=== PATIENT | male | born 1965 | race American Indian/Alaskan Native ===

== ENCOUNTER 2019-08-28 07:54 | Emergency (ER) | payer OTHER ==
[2019-08-28] MEDS ORDERED: Diltiazem 25 MG/5 ML SDV IVPUSH ONE (08:21)
--- NOTE | 2019-08-28 08:31 | EDM.PDOC ---
ED HPI GENERAL MEDICAL PROBLEM - General Chief Complaint: Chest Pain Stated Complaint: PAIN IN CHEST AND STOMACH Time Seen by Provider: 08/28/19 08:29 Source of Information: Reports: Patient History Limitations: Reports: No Limitations - History of Present Illness INITIAL COMMENTS - FREE TEXT/NARRATIVE: 3 days h/o abd bloating and rapid heart. worse this am. seen [facility] and scheduled for holter monitor this am but felt too uncomfortable so came here. 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 chest/abdomen Pain Score (Numeric/FACES): 7 - Related Data Allergies Allergy/AdvReac Type Severity Reaction Status Date / Time No Known Allergies Allergy Verified 08/28/19 08:12 Home Meds: Home Meds Losartan Potassium [Cozaar] 100 mg PO DAILY 03/05/15 [History] Potassium Chloride 20 meq PO TID 03/05/15 [History] Levothyroxine 37.5 mcg PO ACBREAKFAST 02/16/17 [History] Simvastatin [Zocor] 10 mg PO BEDTIME 02/16/17 [History] metFORMIN [Glucophage] 1,000 mg PO BIDMEALS 02/16/17 [History] Apixaban [Eliquis] 5 mg PO BID 07/07/19 [History] Cholecalciferol (Vitamin D3) [Vitamin D3] 1,000 unit PO DAILY 07/07/19 [History] Metoprolol Tartrate [Lopressor] 150 mg PO BID 30 Days #90 tablet 07/13/19 [Rx] Furosemide [Lasix] 40 mg PO BID 08/28/19 [History] Past Medical History HEENT History: Reports: None Cardiovascular History: Reports: Afib, High Cholesterol, Hypertension Respiratory History: Reports: Sleep Apnea Gastrointestinal History: Reports: None Genitourinary History: Reports: None Musculoskeletal History: Reports: Arthritis, Osteoarthritis Neurological History: Reports: None Psychiatric History: Reports: None Endocrine/Metabolic History: Reports: Diabetes, Type II, Hypothyroidism Hematologic History: Reports: None Immunologic History: Reports: None Oncologic (Cancer) History: Reports: None Dermatologic History: Reports: None - Infectious Disease History Infectious Disease History: Reports: Chicken Pox, Measles, Mumps - Past Surgical History Cardiovascular Surgical History: Reports: None Respiratory Surgical History: Reports: None GI Surgical History: Reports: Appendectomy, Colonoscopy Endocrine Surgical History: Reports: None Neurological Surgical History: Reports: None Social & Family History - Family History Family Medical History: Noncontributory - Tobacco Use Smoking Status *Q: Never Smoker Second Hand Smoke Exposure: No - Caffeine Use Caffeine Use: Reports: None - Recreational Drug Use Recreational Drug Use: No ED ROS GENERAL - Review of Systems Review Of Systems: Comprehensive ROS is negative, except as noted in HPI. ED EXAM, GENERAL - Physical Exam Exam: See Below Exam Limited By: No Limitations General Appearance: Alert, WD/WN, Mild Distress, Other (discomfort) Ears: Hearing Grossly Normal Throat/Mouth: Normal Voice, No Airway Compromise Head: Atraumatic Neck: Non-Tender, Full Range of Motion Respiratory/Chest: No Respiratory Distress Cardiovascular: Irregularly Irregular GI/Abdominal: Soft, Non-Tender Neurological: Alert, Oriented, Normal Cognition, Normal Gait, No Motor/Sensory Deficits Psychiatric: Anxious Skin Exam: Warm, Dry, Normal Color Lymphatic: No Adenopathy Course - Vital Signs Last Recorded V/S: Last Vital Signs Temp 35.8 C 08/28/19 08:05 Pulse 48 L 08/28/19 09:14 Resp 23 H 08/28/19 09:14 BP 95/59 L 08/28/19 09:14 Pulse Ox 97 08/28/19 09:14 - Orders/Labs/Meds Orders: Active Orders 24 hr Category Date Time Status EKG 12 Lead [EKG Documentation Completion] [RC] STAT Care 08/28/19 08:39 Active EKG Documentation Completion [RC] STAT Care 08/28/19 08:18 Active Chest 1V Frontal [CR] Urgent Exams 08/28/19 09:06 Taken Labs: Laboratory Tests 08/28/19 08/28/19 Range/Units 08:23 08:23 WBC 9.3 (5.0-10.0) 10^3/uL RBC 6.16 (4.6-6.2) 10^6/uL Hgb 16.1 D (14.0-18.0) g/dL Hct 49.2 (40.0-54.0) % MCV 79.9 L D (80-100) fL MCH 26.1 L (27.0-34.0) pg MCHC 32.7 L (33.0-35.0) g/dL Plt Count 238 (150-450) 10^3/uL Neut % (Auto) 57.0 (42.2-75.2) % Lymph % (Auto) 31.6 (20.5-50.1) % [place] % (Auto) 9.1 H (2-8) % Eos % (Auto) 1.9 (1.0-3.0) % Baso % (Auto) 0.4 (0.0-1.0) % Sodium 136 (135-145) mmol/L Potassium 5.5 H D (3.6-5.0) mmol/L Chloride 104 (101-111) mmol/L Carbon Dioxide 23.0 (21.0-31.0) mmol/L Anion Gap 14.5 BUN 21 H (7-18) mg/dL Creatinine 1.2 (0.6-1.3) mg/dL Est Cr Clr Drug Dosing 79.92 mL/min Estimated GFR (MDRD) > 60 BUN/Creatinine Ratio 17.50 Glucose 142 H (74-105) mg/dL Calcium 8.8 (8.4-10.2) mg/dl Magnesium 2.0 (1.8-2.5) mg/dL Total Bilirubin 1.5 H (0.2-1.0) mg/dL AST 27 (10-42) IU/L ALT 25 (10-60) IU/L Alkaline Phosphatase 56 (42-121) IU/L Troponin I < 0.02 (0.00-0.02) ng/ml B-Natriuretic Peptide 1110 H (0-100) pg/ml Total Protein 6.8 (6.7-8.2) g/dl Albumin 3.4 (3.2-5.5) g/dl Globulin 3.4 Albumin/Globulin Ratio 1.00 Meds: Medications Discontinued Medications Generic Name Dose Route Start Last Admin Trade Name Freq PRN Reason Stop Dose Admin Diltiazem HCl 25 mg 08/28/19 08:21 08/28/19 08:28 Diltiazem IVPUSH 08/28/19 08:22 25 mg ONETIME ONE Administration Sodium Chloride 1,000 mls @ 999 mls/hr 08/28/19 08:43 08/28/19 09:49 Normal Saline IV 08/28/19 09:43 Infused .BOLUS ONE Infusion - Re-Assessments/Exams Free Text/Narrative Re-Assessment/Exam: 08/28/19 08:42 s/p caridzem=much better chest pain and abd bloating all gone. HR 40-50s. denies CP/SOB dizziness 08/28/19 09:[address] Wallace @ [facility] who kindly accepted tp. pt remains asymptomatic. Departure - Departure Time of Disposition: 09:57 Disposition: DC/Tfer to [facility] 02 Reason for Transfer *Q: Other Condition: Good Clinical Impression: Atrial fibrillation with rapid ventricular response, Bradyarrhythmia Hypotension Qualifiers: Hypotension type: other hypotension type Qualified Code(s): I95.89 - Other hypotension Forms: Interfacility Transfer [facility] Sepsis Event Note - Evaluation Sepsis Screening Result: No Definite Risk - Focused Exam Vital Signs: Vital Signs Temp Pulse Resp BP Pulse Ox 08/28/19 09:14 48 L 23 H 95/59 L 97 08/28/19 08:05 35.8 C 127 H 24 H 129/112 H 98 Date Exam was Performed: 08/28/19 Time Exam was Performed: 09:51 - My Orders Last 24 Hours: My Active Orders 08/28/19 08:18 EKG Documentation Completion [RC] STAT 08/28/19 08:39 EKG 12 Lead [EKG Documentation Completion] [RC] STAT 08/28/19 09:06 Chest 1V Frontal [CR] Urgent - Assessment/Plan Last 24 Hours: My Active Orders 08/28/19 08:18 EKG Documentation Completion [RC] STAT 08/28/19 08:39 EKG 12 Lead [EKG Documentation Completion] [RC] STAT 08/28/19 09:06 Chest 1V Frontal [CR] Urgent
[2019-08-28] MEDS ORDERED: Sodium Chloride 0.9% 1,000 ML IV ONE (08:43)
[2019-08-28 08:50] LABS: ANION GAP 14.5; CHLORIDE,CL 104 mmol/L (101-111); SODIUM,NA 136 mmol/L (135-145)
[2019-08-28 09:14] VITALS: PULSE 48
[2019-08-28] MEDS ORDERED: Furosemide 20 MG/2 ML VIAL IVPUSH ONE (09:52)
[2019-08-28] MEDS ORDERED: GI Cocktail Oral Solution 30 ML PO ONE (10:16)
[2019-08-28 10:26] VITALS: BP 88/66
== END 2019-08-28 10:40 ==
LOC: DL.ED 07:54
DX: I48.91 Unspecified atrial fibrillation (principal); I49.8 Other specified cardiac arrhythmias; E78.00 Pure hypercholesterolemia, unspecified; I10 Essential (primary) hypertension; E11.9 Type 2 diabetes mellitus without complications; E03.9 Hypothyroidism, unspecified; Z79.01 Long term (current) use of anticoagulants; Z79.899 Other long term (current) drug therapy; Z79.84 Long term (current) use of oral hypoglycemic drugs; Z79.890 Hormone replacement therapy; I95.9 Hypotension, unspecified
CPT/HCPCS: 36415; 71045; 80053; 83735; 83880; 84484; 85025; 93005; 96361; 96374; 96375; 99284; 99285; A9270; J1940; J3490; J7030